=== PATIENT | male | born 1955 | race Caucasian/White ===

== ENCOUNTER 2016-10-03 20:43 | Observation (INO) | payer OTHER ==
--- NOTE | ~2016-10-03 | HP ---
Unit #: [id number] #: [id number] Patient: JAIMIE BRAUN [id number] [address] [place], [place] [address] [id number] I MR#: [id number] NAME: JAIMIE BRAUN ROOM: [facility] Age: 61 Sex: M Admission Date: 10/03/2016 : 1955 Attending Physician: Sofia Don M.D. Primary Care Physician: No Primary Care Physician HISTORY AND PHYSICAL CHIEF COMPLAINT Renal colic. HISTORY This christopher 61-year-old male was transferred from [facility] emergency department for renal colic. The patient was seen at [facility] in July for left flank pain and was diagnosed with a 5 mm left ureteral stone. He was treated conservatively with Cipro, Flomax, [place]. Never passed a stone. Was well, however, until today when he developed severe left flank pain radiating to his left lower abdomen, associated with nausea, vomiting, sweats, and chills. He went back to [facility] emergency department where a CT scan shows a 5 mm mid left ureteral stone with increasing moderate left hydronephrosis. He was treated with IV fluids, Zofran, morphine, Dilaudid and Zofran. He currently is feeling nauseous and vomiting, although his abdominal flank pain is improved. A call was made to urology, then asked that medicine admit and they would consult in the morning. PAST MEDICAL HISTORY 1. Recent diagnosis of ureteral stone. 2. Arthroscopic right knee surgery. 3. Abscess I and D from the forehead according to family. ALLERGIES None. HOME MEDICATIONS Patient took two aspirin today. He was previously taking Flomax, Cipro and [place]. FAMILY HISTORY Negative for kidney stones. SOCIAL HISTORY The patient is originally from [place], living with his daughter in the [place]. He does not smoke, does no drink alcohol. REVIEW OF SYSTEMS Difficult to obtain due to language barrier. PHYSICAL EXAMINATION GENERAL: Christopher 61-year-old male who was initially vomiting when I Unit #: [id number] #: [id number] Patient: JAIMIE BRAUN walked into the room. VITAL SIGNS: Temperature 98, pulse 80, blood pressure 150/105, O2 saturation 97% on room air. HEENT: Eyes - PERRLA, extraocular muscles are intact. Pharynx is benign. NECK: Supple without adenopathy or thyromegaly. CHEST: Clear. BACK: Without CVA tenderness. CARDIAC: Normal S1 and S2 without S3, S4, or murmur. ABDOMEN: Bowel sounds are present. No hepatosplenomegaly, tenderness or masses at this time. EXTREMITIES: Without clubbing, cyanosis or edema. Pedal pulses are present. No ulcers on the feet. NEUROLOGIC: Patient is awake, alert, and oriented. Cranial nerves are intact. Equal strength throughout. DIAGNOSTIC STUDIES LABORATORY STUDIES: Hematocrit is 46.3, white blood count is 11.9, normal MCV and platelet count. SMA 12 - normal except for an AST of 42, ALT 62. Urinalysis negative. IMAGING STUDIES: CT scan shows increasing left hydronephrosis with an obstructing 5 mm mid left ureteral stone. ASSESSMENT Renal colic with persistent 5 mm left mid ureteral obstructing stone. PLANS 1. IV fluids and supportive treatment. 2. Flomax. 3. SCDs for DVT prophylaxis. 4. Urology was already consulted and planned to see the patient in the morning. Dictated by Tracie Acosta/annie TD: 10/04/2016 06:00 JOB #: [id number] HISTORY AND PHYSICAL Page 1 of 1 X Sofia Don MD X HISTORY AND PHYSICAL
--- NOTE | ~2016-10-03 | OR ---
Unit #: [id number] #: [id number] Patient: JAIMIE BRAUN [id number] [address] [place], [place] [address] [id number] I MR#: [id number] NAME: JAIMIE BRAUN ROOM: [facility] Date of Procedure: 10/04/2016 Admission Date: 10/03/2016 Surgeon: Gallito Carter M.D. : 1955 Attending Physician: May Singh M.D. Primary Care Physician: Primary Care Physician No OPERATIVE REPORT PREOPERATIVE DIAGNOSIS Left ureteral calculus. POSTOPERATIVE DIAGNOSIS Left ureteral calculus. PROCEDURES PERFORMED Cystoscopy, left rigid and flexible ureteroscopy, holmium laser lithotripsy, basket extraction of fragments, placement of internal double-J stent. ANESTHESIA General with local supplementation. INDICATIONS FOR PROCEDURE This 61-year-old man has harbored stone since 07/2016 and is severely symptomatic with at least a 5 mm stone at the mid to distal left ureter. Additional counseling was undertaken in the preoperative holding area through a professional customer services coordinator and all questions were answered. DESCRIPTION OF PROCEDURE The patient was given preoperative antibiotics and satisfactory general anesthesia. In the dorsal lithotomy position, routine prep and drape were performed. The 22-Greenlandic rigid cystoscope would not pass in the meatus without dilating to 24-Greenlandic with the Sarah sounds. After this, the remainder of the ureter was normal. There was elevation of floor of the bladder consistent with a mild degree of BPH bilobar. The bladder was unremarkable and the urine was drained. The orifices were normal and symmetric. The mucosa was healthy. No tumors were seen. A Sensor guidewire passed easily up the ureter and I did not readily see the stone fluoroscopically. The orifice appeared small, so rather than placing an access sheath, I dilated with Lubriglide sizes 6, 8, 10, and 12. Fortunately, all these advancing easily. I then passed a rigid ureteroscope over a second guidewire. This negotiated the pelvic brim without difficulty, but the area of impaction of the stone just above the brim was tight. The scope was advanced through here and no stone was seen. The area of impaction appeared mildly traumatized. It was thought best to use an access sheath rather than simply advancing the flexible ureteroscope. A 13 x 11 short access sheath was introduced after removing the second guidewire. This allowed placement of the flexible ureteroscope in the kidney where the stone was found. It migrated back to an upper Unit #: [id number] #: [id number] Patient: KADE,JAIMIE pole calyx and was in an ideal position to be treated. The 365 nanometer laser fiber was used at settings of 10 and 0.4 to chip it down into numerous small pieces. The largest fragment about 3 mm was basket extracted. This was so straight forward that number of smaller fragments 2 and 1 mm were pulled out also. Certain, there remained no significant fragments and final inspection did suggest that prolonged stenting may be beneficial regarding the mid ureter. I thus placed a 24 x 5-Greenlandic ureteral stent with the proximal curl in the kidney and a proximal curl just within the bladder. This was internally deployed with removal of the tether. The bladder was drained. The cystoscope was removed and a Uro-jet applied to complete the procedure. Stones were sent for chemical analysis. We will plan cystoscopy and stent removal for the patient in two weeks and keep him on tamsulosin with Percocet as needed in the meantime. Dictated by... Tracie Brandt/izzy TD: 10/04/2016 15:07 JOB #: [id number] CC: May Singh M.D. OPERATIVE REPORT Page 1 of 1 X Gallito Carter MD PROCEDURE OPERATIVE NOTE
--- NOTE | ~2016-10-03 | EKG ---
PATIENT: JAIMIE BRAUN UNIT #: [id number] Ventricular Rate: 80 BPM Atrial Rate: 80 BPM P-R Interval: 174 ms QRS Duration: 112 ms Q-T Interval: 382 ms QTC Calculation(Bezet): 440 ms P Fishers: 55 degrees Calculated R Fishers: 56 degrees Calculated T Fishers: 68 degrees Diagnosis Line: Normal sinus rhythm Diagnosis Line: Nonspecific T wave abnormality Diagnosis Line: Abnormal ECG Diagnosis Line: No previous ECGs available Diagnosis Line: Confirmed by GERMAN GOMEZ MD ([id number]) on Diagnosis Line: 10/04/2016 8:23:28 AM INTERPRETING MD: JASON WELLER
--- NOTE | ~2016-10-03 | CO ---
Unit #: [id number] #: [id number] Patient: JAIMIE BRAUN [id number] [address] [place], [place] [address] [id number] I MR#: [id number] NAME: JAIMIE BRAUN ROOM: [facility] Age: 61 Sex: M Admission Date: 10/03/2016 : 1955 Attending Physician: May Singh M.D. Primary Care Physician: Lisa Primary Care Physician Consultation Date: 10/04/2016 CONSULTATION REPORT REASON FOR CONSULTATION Left flank pain, ureteral stone. HISTORY This 61-year-old man, originally from [place], speaks no Vincentian, but his daughter at bedside is bilingual. He developed onset of severe left flank pain radiating to the left lower quadrant yesterday associated with nausea and vomiting. He was evaluated at [facility] for similar symptoms in July and noted to have a ureteral stone at that time, which did not clearly pass. He returned their yesterday and was found to have a 5-mm stone obstructing the left ureter with hydronephrosis, and the stone was residing at the junction of the mid and distal ureter just at the pelvic brim. His pain persisted overnight despite medication. He has had no fever or chills. PAST MEDICAL HISTORY No chronic illnesses. SURGERIES Right knee scope. MEDICATIONS None, although he has been given Cipro and tamsulosin and [place] for the pain. ALLERGIES None known. FAMILY HISTORY Negative for prostate cancer. SOCIAL HISTORY Nonsmoker. Works at [employer]. REVIEW OF SYSTEMS As above. PHYSICAL EXAMINATION GENERAL: On examination the patient is awake, alert, mildly uncomfortable, medicated. VITAL SIGNS: Afebrile with stable vital signs as documented. ABDOMEN: Abdomen is tender on the left side. GENITALIA: Phallus normal. Penis, testes and epididymides normal, descended. Unit #: [id number] #: [id number] Patient: JAIMIE BRAUN DIAGNOSTIC STUDIES LABORATORY: Notable for a creatinine of 1, WBC 11.7. X-RAYS: CT scan shows a 5-mm obstructing stone, as above, and there are no other stones in either collecting system. IMPRESSION Moderately large left ureteral stone, subacute and unlikely to pass spontaneously it would appear. Patient agrees with definitive management and can proceed with ureteroscopy later today. He understands that risks include pain, bleeding, infection, possible need for prolonged stenting or additional procedures. PLAN Will proceed with left ureteroscopy, laser lithotripsy and likely stent placement. Dictated by... Tracie Brandt/polo TD: 10/05/2016 08:06 JOB #: [id number] CONSULTATION REPORT Page 1 of 1 X Gallito Carter MD X CONSULTATION REPORT
[~2016-10-03 20:43] MED LIST: BACITRACIN30 GM TOP; NO MEDS; PERCOCET5/325 PO
[2016-10-04 03:18] LABS: BASOPHIL% 0.3 % (0-2.5); HEMATOCRIT 44.8 % (38.0-50.0); HEMOGLOBIN 14.4 gm/dL (13.0-16.0); LYMPHOCYTE# 0.8 X10e3 (1.0-3.5); LYMPHOCYTE% 7.2 % (17.0-45.0); MEAN CELL VOLUME 92.2 FL (83-96); MEAN CORPUSCULAR HEMOGLOBIN 29.6 PG (28-34); MEAN CORPUSCULAR HGB CONC 32.1 g/dL (30-36); MEAN PLATELET VOLUME 8.4 FL (6.5-11.5); MONOCYTE# 0.5 X10e3 (0-1.0); MONOCYTE% 4.6 % (3.0-12.0); NEUTROPHIL# 10.3 X10e3 (1.5-7.1); NEUTROPHIL% 87.9 % (40-75); PLATELET COUNT 178 X10e3 (140-420); RED BLOOD COUNT 4.86 X10e (3.90-5.60); RED CELL DISTRIBUTION WIDTH 13.5 % (11.0-15.5); WHITE BLOOD COUNT 11.7 X10e3 (4.0-10.5)
[2016-10-04 03:19] LABS: DIFF IND NO
[2016-10-04 03:41] LABS: CALCIUM SERUM 8.4 mg/dL (8.4-10.2); GLOM FILT RATE Estimated 81.5 mL/min (>60); POTASSIUM 4.6 mmol/L (3.5-5.1)
[2016-10-05 02:41] LABS: HEMATOCRIT 43.5 % (38.0-50.0); MEAN CELL VOLUME 92.5 FL (83-96); MEAN CORPUSCULAR HEMOGLOBIN 29.7 PG (28-34); MEAN CORPUSCULAR HGB CONC 32.1 g/dL (30-36); MEAN PLATELET VOLUME 8.3 FL (6.5-11.5); RED BLOOD COUNT 4.7 X10e (3.90-5.60); WHITE BLOOD COUNT 13.7 X10e3 (4.0-10.5)
[2016-10-05 03:37] LABS: ALBUMIN SERUM 3.9 g/dL (3.5-5.0); BILIRUBIN,TOTAL 0.7 mg/dL (0.2-2.0); BUN/CREATININE RATIO 21.11; CALCIUM SERUM 8.4 mg/dL (8.4-10.2); CREATININE SERUM 0.9 mg/dL (0.6-1.4); GLOM FILT RATE Estimated 92.5 mL/min (>60); POTASSIUM 4.3 mmol/L (3.5-5.1); PROTEIN TOTAL SERUM 6.4 g/dL (6.0-8.3)
[2016-10-05] MEDS ORDERED: PERCOCET5/325 PO (14:32)
[2016-10-05] MEDS ORDERED: FLOMAX0.4 M1 PO (14:33)
== END 2016-10-05 15:10 | disposition home or self-care (01) | DRG 694 ==
LOC: C4C 20:43 → UNDOADMOB 20:43 → C4C 21:50
PROVIDERS: Internal Medicine
DX: N13.2 Hydronephrosis with renal and ureteral calculous obstruction (principal); R73.9 Hyperglycemia, unspecified
CPT/HCPCS: 80048; 80053; 82365; 82947; 83036; 85025; 85027; 88300; 93005; 96374; 96375; 96376; C1758; C2617; G0378; J0330; J0690; J1100; J1170; J1885; J2250; J2405; J2710; J3010

== ENCOUNTER → 2016-11-01 | Outpatient (CLI) | payer OTHER ==
[~2016-11-01] MED LIST changes: +FLOMAX0.4 M1 PO
--- NOTE | ~2016-11-01 | US77 ---
[facility] A Service of [facility] & [facility] RADIOLOGY TEXT RESULTS PATIENT: JAIMIE SOSA LOCATION: [facility] : [birth year] UNIT #: [id number] AGE: [address]: Gallito Carter MD SEX: M ORDER DR: [id number] [facility] [address]. [place], [place] [address] [id number] O MR#: [id number] Acc #: [id number] NAME: JAIMIE SOSA : 1955 SEX: M STUDY DATE/TIME: 11/01/2016 14:30 UNIT: [facility] ROOM: STUDY DESCRIPTION: US Kidney Bilateral Complete Attending Physician: Gallito Carter M.D. Referring Physician: Gallito Carter M.D. Ordering Physician: Gallito Carter M.D. Primary Care Physician: Primary Care Physician No MEDICAL IMAGING REPORT This report is preliminary unless electronic signature is present EXAM Renal ultrasound 11/01/2016 HISTORY Follow up left-sided hydronephrosis due to left ureteral stone on CT scan of the abdomen and pelvis 10/03/2016. Stone removed 2 weeks ago. FINDINGS The kidney measures 11 cm while the left kidney measures 12.4 cm in longitudinal dimensions. There is no evidence of hydronephrosis or nephrolithiasis. No cystic or solid mass lesions were seen on either kidney. There is normal renal cortical echogenicity. Images of the bladder are normal. IMPRESSION 1. Negative renal ultrasound. 2. Images of the bladder are normal. Dictated by... David Cooper M.D. THIS IS AN ELECTRONICALLY VERIFIED REPORT David Cooper M.D. at 11/02/2016 7:33 AM FRANCIS/joyce TD: 11/01/2016 18:20 JOB #: [id number] MEDICAL IMAGING REPORT Page 1 of 1 COPY
== END | disposition home or self-care (01) ==
LOC: CGUS 14:10
DX: N20.1 Calculus of ureter (principal)
CPT/HCPCS: 76770